=== PATIENT | female | born 1965 | race Caucasian/White ===

== ENCOUNTER 2017-02-11 15:15 | Emergency (ER) | payer MEDICAID, OTHER ==
[2017-02-11] MEDS ORDERED: Alum Hydrox/Mag Hydrox/Simeth 15 ML, Lidocaine 2% 15 ML PO ONE ×2 (15:34)
[2017-02-11 16:26] VITALS: BP 144/88
--- NOTE | 2017-02-11 16:28 | EDM.PDOC ---
ED HPI GENERAL MEDICAL PROBLEM - General Chief Complaint: Chest Pain Stated Complaint: CHEST PAINS Time Seen by Provider: 02/11/17 15:25 Source of Information: Reports: Patient, Family History Limitations: Reports: No Limitations - History of Present Illness INITIAL COMMENTS - FREE TEXT/NARRATIVE: 52-year-old female with substernal chest and upper abdominal pain after taking codeine, roughly 1-1/2 hours after a dental procedure. She became diaphoretic and uncomfortable, the diaphoresis has resolved but the pain continues. No shortness of breath, no fevers or chills. No radiation of pain to her back. No history of coronary artery disease. Somewhat nauseous but no vomiting. Onset: Gradual (Onset around a half hour ago approximately one hour after taking codeine) Location: Reports: Abdomen Quality: Reports: Ache, Burning Severity: Moderate Improves with: Reports: None Worsens with: Reports: None Associated Symptoms: Reports: No Other Symptoms Chest Pain Score (Numeric/FACES): 7 - Related Data Allergies Allergy/AdvReac Type Severity Reaction Status Date / Time No Known Allergies Allergy Verified 02/11/17 15:20 Home Meds: Home Meds Acetaminophen with Codeine [Acetaminophen-Cod #3] 1 tab PO Q6H PRN 02/11/17 [ History] Past Medical History HAND POTTER History: Reports: - Past Surgical History GI Surgical History: Reports: Cholecystectomy Female Surgical History: Reports: Section Social & Family History - Tobacco Use Smoking Status *Q: Heavy Tobacco Smoker Years of Tobacco use: 30 Packs/Tins Daily: 1 - Caffeine Use Caffeine Use: Reports: Coffee - Recreational Drug Use Recreational Drug Use: No ED ROS GENERAL - Review of Systems Review Of Systems: See Below Constitutional: Reports: Malaise. Denies: Fever, Chills HEENT: Reports: No Symptoms Respiratory: Denies: Shortness of Breath, Cough Cardiovascular: Reports: Chest Pain (Lower anterior substernal) GI/Abdominal: Reports: Abdominal Pain, Nausea. Denies: Decreased Appetite, Vomiting : Reports: No Symptoms Skin: Reports: No Symptoms Neurological: Reports: No Symptoms Psychiatric: Reports: No Symptoms ED EXAM, GENERAL - Physical Exam Exam: See Below Exam Limited By: No Limitations General Appearance: Alert, Mild Distress Eye Exam: Bilateral Eye: Normal Inspection (Normal hydration, no jaundice) Respiratory/Chest: No Respiratory Distress, Lungs Clear, Other (Some tenderness to palpation over the lower sternum, also epigastric area without guarding or rebound) Cardiovascular: Regular Rate, Rhythm GI/Abdominal: Normal Bowel Sounds, Tender (Epigastric area) Extremities: Normal Inspection Neurological: Alert, Oriented Skin Exam: Warm, Dry Course - Vital Signs Last Recorded V/S: Last Vital Signs Temp 95.4 F 02/11/17 15:23 Pulse 66 02/11/17 15:23 Resp 20 02/11/17 15:23 BP 144/88 H 02/11/17 15:23 Pulse Ox 99 02/11/17 15:23 - Orders/Labs/Meds Orders: Active Orders 24 hr Category Date Time Status EKG Documentation Completion [RC] ASDIRECTED Care 02/11/17 16:30 Active EKG 12 Lead [EK] Routine Ther 02/11/17 16:29 Ordered Labs: Laboratory Tests 02/11/17 02/11/17 Range/Units 15:50 15:50 WBC 5.8 (4.5-11.0) K/uL RBC 4.89 (3.30-5.50) M/uL Hgb 15.2 H (12.0-15.0) g/dL Hct 45.3 (36.0-48.0) % MCV 93 (80-98) fL MCH 31 (27-31) pg MCHC 34 (32-36) % Plt Count 261 (150-400) K/uL Neut % (Auto) 50 (36-66) % Lymph % (Auto) 38 (24-44) % [place] % (Auto) 9 H (2-6) % Eos % (Auto) 3 (2-4) % Baso % (Auto) 1 (0-1) % Sodium 141 (140-148) mmol/L Potassium 3.9 (3.6-5.2) mmol/L Chloride 106 (100-108) mmol/L Carbon Dioxide 28 (21-32) mmol/L Anion Gap 7.2 (5.0-14.0) mmol/L BUN 11 (7-18) mg/dL Creatinine 0.8 (0.6-1.0) mg/dL Est Cr Clr Drug Dosing TNP Estimated GFR (MDRD) > 60 (>60) Glucose 92 (74-106) mg/dL Calcium 9.7 (8.5-10.1) mg/dL Total Bilirubin 1.0 (0.2-1.0) mg/dL AST 29 (15-37) U/L ALT 26 (12-78) U/L Alkaline Phosphatase 97 (46-116) U/L Total Protein 8.6 H (6.4-8.2) g/dL Albumin 4.3 (3.4-5.0) g/dL Globulin 4.3 H (2.3-3.5) g/dL Albumin/Globulin Ratio 1.0 L (1.2-2.2) Lipase 198 (73-393) U/L Meds: Medications Discontinued Medications Generic Name Dose Route Start Last Admin Trade Name Freq PRN Reason Stop Dose Admin Al Hydroxide/Mg Hydroxide 15 0 ml 02/11/17 15:34 02/11/17 15:40 ml/ Lidocaine HCl 15 ml PO 02/11/17 15:35 15 ml ONETIME ONE Administration - Re-Assessments/Exams Free Text/Narrative Re-Assessment/Exam: 02/11/17 16:26 Patient was given a GI cocktail, reexamined in 20 minutes and really didn't have any significant relief. At that point a CBC CMP amylase was obtained, when the labs returned after 20-30 minutes the patient was feeling much better. All labs were reassuring, white count was normal, amylase lipase were normal and CMP was normal. Patient is going to avoid any further doses of codeine and return if symptoms worsen or she develops other concerns. Encouraged her to stay hydrated. Departure - Departure Time of Disposition: 16:36 Disposition: Home, Self-Care 01 Condition: Good Clinical Impression: Medication side effect Qualifiers: Encounter type: initial encounter Qualified Code(s): T88.7XXA - Unspecified adverse effect of drug or medicament, initial encounter Abdominal pain Qualifiers: Abdominal location: upper abdomen, unspecified Qualified Code(s): R10.10 - Upper abdominal pain, unspecified - Discharge Information Instructions: Drug Allergy, [id number] Referrals: PCP,None [Primary Care Provider] - Forms: ED Department Discharge Care Plan Goals: Increase diet and activity as tolerated concentrating on fluids. Avoid codeine and return if symptoms worsen despite no further codeine has been taken. - My Orders Last 24 Hours: My Active Orders 02/11/17 16:29 EKG 12 Lead [EK] Routine 02/11/17 16:30 EKG Documentation Completion [RC] ASDIRECTED - Assessment/Plan Last 24 Hours: My Active Orders 02/11/17 16:29 EKG 12 Lead [EK] Routine 02/11/17 16:30 EKG Documentation Completion [RC] ASDIRECTED
== END 2017-02-11 16:36 | disposition home or self-care (01) ==
LOC: JP.ED 15:15
DX: R10.10 Upper abdominal pain, unspecified (principal); R07.2 Precordial pain; T40.2X5A Adverse effect of other opioids, initial encounter; F17.210 Nicotine dependence, cigarettes, uncomplicated; Z90.49 Acquired absence of other specified parts of digestive tract
CPT/HCPCS: 36415; 80053; 83690; 85025; 93005; 99285; A9270